=== PATIENT | female | born 1995 | race African-American/Black ===

== ENCOUNTER 2017-03-06 07:13 | Inpatient (IN) | payer MEDICAID ==
[~2017-03-06] VITALS: Ht 162.6 cm; Wt 51.4 kg
[2017-03-06 09:35] LABS: BASOPHILS # (AUTO) 0.03 K/uL (0.00-0.20); BASOPHILS % (AUTO) 0.3 % (0.0-2.0); EOSINOPHILS # (AUTO) 0.11 K/uL (0.00-0.70); EOSINOPHILS % (AUTO) 1.14 % (1.0-6.0); HEMATOCRIT 38.1 % (36-46); HEMOGLOBIN 12.9 g/dL (12.0-16.0); LYMPHOCYTES # (AUTO) 1.8 K/uL (1.0-4.8); LYMPHOCYTES % (AUTO) 19.7 % (22.0-44.0); MEAN CORPUSCULAR HEMOGLOBIN 32.7 pg (26.0-34.0); MEAN CORPUSCULAR HGB CONC 33.7 G/dL (31.0-37.0); MEAN CORPUSCULAR VOLUME 97 fL (80-100); MONOCYTES # (AUTO) 0.8 K/uL (0.1-1.0); MONOCYTES % (AUTO) 8.3 % (2.0-9.0); NEUTROPHILS # (AUTO) 6.6 K/uL (1.8-7.7); NEUTROPHILS % (AUTO) 70.6 % (40.0-70.0); PLATELET COUNT (AUTO) 196 K/uL (150-450); RED BLOOD CELL COUNT(AUTO) 3.93 MIL/uL (4.00-5.20); RED CELL DISTRIBUTION WIDTH 13.6 % (11.5-14.5)
[2017-03-06] MEDS ORDERED: ZOLPIDEM TARTRATE 10 MG TABLET PO PRN (09:45)
[2017-03-06] MEDS ORDERED: LORazepam 2 MG TABLET PO PRN (09:45)
[2017-03-06] MEDS ORDERED: HALOPERIDOL 5 MG TABLET PO PRN (09:45)
[2017-03-06 09:54] LABS: ANION GAP 10 mmol/L (8-16); CALCIUM, TOTAL 9.2 mg/dL (8.8-10.5); CARBON DIOXIDE 25 mmol/L (22-29); CHLORIDE 100 mmol/L (98-107); CREATININE 0.93 mg/dL (0.60-1.30); GLOMERULAR FILTR. RATE CALC > 60 mL/min (>60); GLUCOSE,RANDOM 102 mg/dL (70-110); POTASSIUM 4.2 mmol/L (3.5-5.1); SODIUM SERUM 135 mmol/L (136-145); UREA NITROGEN, BLOOD 11 mg/dL (7-18)
[2017-03-06 10:00] LABS: ALANINE AMINOTRANSFERASE 31 U/L (12-78); ALBUMIN 4.3 g/dL (3.4-5.0); ALKALINE PHOSPHATASE 73 U/L (46-116); ASPARTATE AMINOTRANSFERASE 24 U/L (15-37); BILIRUBIN,TOTAL 0.5 mg/dL (0.1-1.0)
[2017-03-06 10:17] LABS: PLATELET MORPHOLOGY COMMENT LARGE PLTS PRESENT
[2017-03-06] MEDS ORDERED: DiphenhydrAMINE HCL 50 MG/ML VIAL IM ONE (10:30)
[2017-03-06 20:09] VITALS: BP 131/88
[2017-03-07] MEDS ORDERED: CloNIDine HCL 0.1 MG TABLET PO PRN (07:15)
[2017-03-07] MEDS ORDERED: MAGNESIUM HYDROXIDE SUSPENSION 30 ML UDCUP PO PRN (07:15)
[2017-03-07] MEDS ORDERED: BENZOCAINE/MENTHOL LOZENGE MM PRN (07:15)
[2017-03-07] MEDS ORDERED: ALBUTEROL SULFATE HFA 90 MCG/PUFF 8 GM INHALER IH PRN (07:15)
[2017-03-07] MEDS ORDERED: ONDANSETRON HCL 4 MG TABLET PO PRN (07:15)
[2017-03-07] MEDS ORDERED: LOPERAMIDE HCL 2 MG CAPSULE PO PRN (07:15)
[2017-03-07] MEDS ORDERED: PETROLATUM,WHITE 71 GM JELLY TP PRN (07:15)
[2017-03-07] MEDS ORDERED: BACITRACIN 28.4 GM OINTMENT TP PRN (07:15)
[2017-03-07] MEDS ORDERED: MAG HYDROX/AL HYDROX/SIMETH ES 30 ML SUSPENSION UDCUP PO PRN (07:15)
[2017-03-07] MEDS ORDERED: ACETAMINOPHEN 325 MG TABLET PO PRN (07:15)
[2017-03-07] MEDS ORDERED: IBUPROFEN 600 MG TABLET PO PRN (07:15)
[2017-03-07] MEDS: SERTRALINE HCL 50 MG TABLET PO SCH (11:01)
[2017-03-08 09:39] VITALS: BP 132/95
[2017-03-08] MEDS: SERTRALINE HCL 50 MG TABLET PO SCH (11:25)
[2017-03-08 16:37] VITALS: BP 119/88
[2017-03-08] MEDS ORDERED: SODIUM CHLORIDE 1 GM TABLET PO ONE (19:15)
[2017-03-09] MEDS: SERTRALINE HCL 50 MG TABLET PO SCH (08:09)
[2017-03-09 10:03] VITALS: BP 125/87
[2017-03-09] MEDS ORDERED: SERT50TA12 PO (11:32)
== END 2017-03-09 14:24 | disposition home or self-care (01) | DRG 751 ==
LOC: EMS 07:16 → AHU 10:04 → 3EI 18:00
DX: F33.2 Major depressive disorder, recurrent severe without psychotic features (principal); E87.1 Hypo-osmolality and hyponatremia; R45.851 Suicidal ideations; F23 Brief psychotic disorder; G47.00 Insomnia, unspecified; F12.10 Cannabis abuse, uncomplicated; F10.10 Alcohol abuse, uncomplicated; F17.200 Nicotine dependence, unspecified, uncomplicated; Z59.0 Homelessness; Z91.5 Personal history of self-harm
CPT/HCPCS: 84295; 99285; G0480; J1200

== ENCOUNTER 2020-06-07 05:06 | Emergency (ER) | payer MEDICAID ==
[~2020-06-07] VITALS: Ht 162.6 cm; Wt 51.4 kg
[~2020-06-07 05:06] MED LIST: SERT-158 PO
[2020-06-07] MEDS ORDERED: LORazepam 1 MG TABLET PO ONE (05:30)
[2020-06-07 06:05] VITALS: BP 146/95
== END 2020-06-07 06:55 | disposition home or self-care (01) ==
LOC: EMS 05:07
DX: F41.9 Anxiety disorder, unspecified (principal); F17.210 Nicotine dependence, cigarettes, uncomplicated
CPT/HCPCS: 93005; 99283